=== PATIENT | female | born 1965 | race Caucasian/White ===

== ENCOUNTER 2016-07-11 18:54 | Emergency (ER) | payer OTHER ==
[~2016-07-11] VITALS: Ht 175.3 cm; Wt 140.9 kg
[~2016-07-11 18:54] MED LIST: ATEN25TA38 PO; LORA-303 PO; ZOF8 PO
[2016-07-11 19:02] VITALS: BP 144/92; PULSE 79; RESP 20; O2SAT 98
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
[2016-07-11 19:47] LABS: BASOPHILS % (AUTO) 0.2 % (0-3); EOSINOPHILS % (AUTO) 1.7 % (0-5); MONOCYTES % (AUTO) 5.3 % (4-12); Mean Corpuscular Hemoglobin 27.9 pg (27.0-35.0); Mean Corpuscular Volume 82.9 fL (81-100); NEUTROPHILS % (AUTO) 69.5 % (40-74); Platelet Count 220 bil/L (150-400)
[2016-07-11] MEDS ORDERED: LORazepam 1 mg Tablet PO ONE (19:55)
[2016-07-11 20:09] LABS: TROPONIN T < 0.010 ug/L (0.0-0.011)
--- NOTE | 2016-07-11 20:09 | DRSVH ---
PROCEDURE: X-RAY CHEST ONE VIEW, PORTABLE ([id number]) INDICATIONS: CHEST PAIN TECHNIQUE: One view of the chest was acquired. COMPARISON: [facility], , CHEST 2VW, 05/08/2014, 10:35. FINDINGS: Surgical changes and devices: None. Lungs and pleura: No pleural effusions or pneumothorax. Lungs are clear. Mediastinum: Mediastinal contours appear normal. Heart size is normal. Bones and chest wall: No suspicious bony lesions. Overlying soft tissues appear unremarkable. IMPRESSION: No acute process. Dictated by: Cheyenne Calles M.D. on 07/11/2016 at 20:07 Approved by: Cheyenne Calles M.D. on 07/11/2016 at 20:08
[2016-07-11 20:56] VITALS: BP 159/71; PULSE 82; RESP 16; O2SAT 95
[2016-07-11 21:03] LABS: Lipase 32 U/L (13-60)
== END 2016-07-11 20:59 | disposition home or self-care (01) ==
LOC: SED 18:54
DX: R07.89 Other chest pain (principal); I10 Essential (primary) hypertension; Z90.49 Acquired absence of other specified parts of digestive tract; Z88.2 Allergy status to sulfonamides; Z88.5 Allergy status to narcotic agent